=== PATIENT | male | born 1965 ===

== ENCOUNTER 2017-12-24 16:01 | Emergency (ER) | payer OTHER ==
[2017-12-24 16:01] VITALS: BMI 27.3
[2017-12-24 16:24] VITALS: BP 149/89; PULSE 66; RESP 18; TEMP 97.6; O2SAT 97
--- NOTE | 2017-12-24 16:44 | ED PDOC ---
Lower Extremity Pain/Injury Time Seen by Provider: 12/24/17 16:26 Chief Complaint (Nursing): Lower Extremity Problem/Injury Chief Complaint (Provider): Lower Extremity Problem/Injury History Per: Patient History/Exam Limitations: no limitations Onset/Duration Of Symptoms: Persistent (10+ years), Worse Since (x2 days ago) Current Symptoms Are (Timing): Still Present Additional Complaint(s): 52 year old male with medical history of chronic bilateral knee pain, presents to the emergency department with a complaint of left knee "pulling sensation" as he was getting up from a seated position 2 days ago. Patient reports taking Advil without relief. He denies any numbness, tingling, blunt trauma or calf pain. Of note, patient also states having undergone physical therapy and bilateral knee cortisone injections in 2004 for meniscus tears and had an MRI performed last year which showed arthritis. PMD: none provided Past Medical History Reviewed: Historical Data, Nursing Documentation, Vital Signs Vital Signs: Last Vital Signs Temp 97.6 F 12/24/17 16:21 Pulse 66 12/24/17 16:21 Resp 18 12/24/17 16:21 BP 149/89 12/24/17 16:21 Pulse Ox 97 12/24/17 16:21 - Medical History PMH: Arthritis - Surgical History Surgical History: No Surg Hx - Family History Family History: States: Unknown Family Hx - Social History Current smoker - smoking cessation education provided: No Alcohol: Occasional Drugs: Denies - Home Medications Home Medications: Ambulatory Orders Medication Instructions Recorded Fexofenadine HCl [DaryaNf] 1 tab PO DAILY #30 tab 05/12/16 Fluticasone Propionate [Flonase] 1 spr NS DAILY #120 spr 05/12/16 Cephalexin [Keflex] 500 mg PO QID #28 capsule 03/21/17 Naproxen [Naprosyn] 500 mg PO BID #20 tab 03/21/17 Meloxicam [Mobic] 7.5 mg PO DAILY PRN #10 tab 12/24/17 - Allergies Allergies/Adverse Reactions: Allergies Allergy/AdvReac Type Severity Reaction Status Date / Time No Known Allergies Allergy Verified 12/24/17 16:21 Review of Systems ROS Statement: Except As Marked, All Systems Reviewed And Found Negative Musculoskeletal: Positive for: Leg Pain (left knee pulling sensation). Negative for: Other (blunt trauma or calf pain) Neurological: Negative for: Numbness (or tingling) Physical Exam - Reviewed Nursing Documentation Reviewed: Yes Vital Signs Reviewed: Yes - Physical Exam Appears: Positive for: Non-toxic, No Acute Distress Skin: Positive for: Normal Color. Negative for: Rash Pulses-Dorsalis Pedis (L): 2+ Extremity: Positive for: Normal ROM (left knee actively with pain), Other (left knee crepitus noted). Negative for: Tenderness (left knee), Calf Tenderness ( left-sided), Deformity (left knee), Swelling (or warmth/erythema of left knee) Neurologic/Psych: Positive for: Alert, Oriented. Negative for: Motor/Sensory Deficits - ECG O2 Sat by Pulse Oximetry: 97 (RA) Pulse Ox Interpretation: Normal - Radiology X-Ray: Interpreted by Me (Knee x-ray) X-Ray Interpretation: Other (moderate DJD) Medical Decision Making Medical Decision Making: Initial Impression: Knee pain Initial Plan: * Xray knee (left) * Toradol 30mg IM Time: 1721 --Upon provider reevaluation, patient is medically stable and requires no further treatment in the ED at this time. Patient will be discharged home with Rx for Mobic 7.5mg. Counseling was provided and all questions were answered regarding diagnosis and need for follow up with Dr. Garcia, ortho specialist. There is agreement to discharge plan. Return if symptoms persist or worsen. Clinical Impression: Knee pain Scribe Attestation: Documented by Sarah Trotter, acting as a scribe for Miguel Hubbard PA-C. Provider Scribe Attestation: All medical record entries made by the Scribe were at my direction and personally dictated by me. I have reviewed the chart and agree that the record accurately reflects my personal performance of the history, physical exam, medical decision making, and the department course for this patient. I have also personally directed, reviewed, and agree with the discharge instructions and disposition. Disposition - Clinical Impression Clinical Impression: Knee pain - Patient ED Disposition Is Patient to be Admitted: No Counseled Patient/Family Regarding: Studies Performed, Diagnosis, Need For Followup - Disposition Referrals: [facility] [Outside] [facility] [Outside] Angelita Sarkar MD [Staff Provider] - Disposition: Routine/Home Disposition Time: 17:21 Condition: STABLE Additional Instructions: Follow up with [facility] for further evaluation. Return to ED immediately if symptoms worsen. Prescriptions: Meloxicam [Mobic] 7.5 mg PO DAILY PRN #10 tab PRN Reason: Pain, Mild (1-3) Instructions: Knee Pain (DC) Forms: [facility] (Maldivian) Print Language: PALAUAN
--- NOTE | 2017-12-24 18:27 | RAD ---
PROCEDURE: Left Knee Radiographs. HISTORY: Pain. COMPARISON: None. FINDINGS: BONES: No acute fracture, dislocation or subluxation is identified. Joint space narrowing and marked cortical sclerosis are appreciated at the medial patellofemoral and medial femorotibial and patellofemoral joint compartments compatible with advanced degenerative joint disease and includes prominent osteophyte development as well. Lesser similar changes are identified at the lateral femorotibial compartment. No destructive bony lesion appreciated. JOINTS: As above. JOINT EFFUSION: A small approximate 1.3 cm calcific density seen in the region of the suprasellar bursa or soft tissues superficial to it. OTHER FINDINGS: None. IMPRESSION: Advanced osteoarthritis, tricompartmental with 1.2 cm heterotopic calcific density in suprasellar bursa or be the superficial to it. No acute fracture or dislocation.
== END 2017-12-24 17:53 | disposition home or self-care (01) ==
LOC: H.ER 16:01 → EDBD 16:01 → H.ER 17:53
DX: M25.562 Pain in left knee (principal); M25.561 Pain in right knee; M17.12 Unilateral primary osteoarthritis, left knee
CPT/HCPCS: 73562; 96372; 99283; J1885